=== PATIENT | female | born 1970 | race Caucasian/White ===

== ENCOUNTER → 2017-03-29 | Outpatient (CLI) | payer OTHER ==
--- NOTE | 2017-03-29 20:33 | REP ---
CT of the chest without IV contrast: There are no comparison studies. There are no infiltrates. There are no effusions. There is a focal zone of mild pleural thickening at the superior aspect of the right major fissure where it joins the posterior pleura, likely chronic pleural scarring. However, a small pleural mass is not entirely discounted. in the absence of comparison studies to document stability. Follow-up with attention to this area might be considered. There is a 4 mm nodule anteriorly in the medial segment right middle lobe on image 60. This is a category 2 lesion with the probability of malignancy less than 1%. Annual CT is recommended for follow up of this finding. There are no bulla. There is no inspissated mucoid secretion in the central or peripheral bronchi. The lung griffin otherwise clear and unremarkable. There is no mediastinal adenopathy. There is no axillary adenopathy. The study is insensitive for hilar adenopathy in the absence of IV contrast. The unenhanced thoracic aorta is unremarkable. Cardiac size is normal. The visualized upper abdominal contents are unremarkable. Impression: There are no bulla. There are no inspissated mucoid secretions in the bronchi. There are no infiltrates or effusions. There is a 4 millimeter nodule in the right middle lobe as discussed in the body of the report. Follow-up CT in 1 year for reevaluation of this nodule is recommended. There is focal pleural thickening at the superior margin of the right major fissure where it joins the posterior pleura. Pleural adhesion/scarring versus small pleural mass are diagnostic considerations. Consider follow-up CT in 3/6 months to evaluate for progression. There is no adenopathy. There are no masses. Otherwise, negative CT of the chest. [place] on pulmonary function tests is recommended. Pulmonary consultation might be considered. Signed by Steve Perez MD 03/29/2017 08:25 P
== END ==
LOC: M RAD 17:57
PROVIDERS: ATTEND Family Medicine
DX: J44.9 Chronic obstructive pulmonary disease, unspecified (principal)

== ENCOUNTER → 2017-04-30 | Outpatient (CLI) | payer OTHER ==
[~2017-04-30] MED LIST: METHACHOLINE KIT (J7674) INH
== END ==
LOC: M CARPUL 07:49
DX: R91.1 Solitary pulmonary nodule (principal)
CPT/HCPCS: J7674

== ENCOUNTER 2017-09-02 14:29 | Day surgery (SDC) | payer OTHER ==
[2017-09-02 15:03] LABS: HEMATOCRIT 40.6 % (36.0-47.0); HEMOGLOBIN 13.7 g/dl (12.0-15.5); MEAN CORPUSCULAR HEMOGLOBIN 30.2 pg (27.0-33.0); MEAN CORPUSCULAR HGB CONC 33.7 g/dl (32.0-36.5); MEAN CORPUSCULAR VOLUME 89.6 fl (80.0-96.0); PLATELET COUNT, AUTOMATED 322 10^3/uL (150-450); RED BLOOD COUNT 4.53 10^6/uL (4.00-5.40); RED CELL DISTRIBUTION WIDTH 12.8 % (11.5-14.5); WHITE BLOOD COUNT 7.5 10^3/uL (4.0-10.0)
[2017-09-02] MEDS: LR 1,000 ML IV (15:14)
[2017-09-02 15:23] LABS: CONTROL LINE HCG INT CTR LINE PRESENT; HCG, SERUM QUALITATIVE NEGATIVE (NEGATIVE)
[2017-09-02] MEDS: SILVER NITRATE APPLICATOR As Ordered (17:12)
[2017-09-02] MEDS: LIDOCAINE 1% SDV INJ 30 ML VIAL As Ordered (17:12)
[2017-09-02] MEDS ORDERED: PROPOFOL 200 MG/20 ML VIAL As Ordered (17:16)
[2017-09-02] MEDS ORDERED: MIDAZOLAM INJ 2 MG/2 ML VIAL (J2250) As Ordered (17:16)
[2017-09-02] MEDS ORDERED: fentaNYL 100 MCG/2 ML INJECTION (J3010) As Ordered (17:16)
[2017-09-02] MEDS ORDERED: dexameTHASONE 4 MG/ML 1ML VIAL (J1100) As Ordered (18:33)
[2017-09-02] MEDS ORDERED: ONDANSETRON 4MG/2ML VIAL (J2405) As Ordered (18:33)
[2017-09-02] MEDS ORDERED: KETOROLAC 60 MG/2 ML VIAL (J1885) As Ordered ×2 (18:42)
[2017-09-02] MEDS ORDERED: ePHEDrine SULFATE 25 MG/5 ML(5MG/ML) SYRINGE As Ordered (18:44)
[2017-09-02] MEDS ORDERED: LR 1,000 ML IV ×2 (19:30)
[2017-09-02] MEDS ORDERED: ONDANSETRON 4MG/2ML VIAL (J2405) IV (19:30)
[2017-09-02] MEDS ORDERED: PERCOCET 5MG/325MG TAB PO (19:30)
== END 2017-09-02 20:30 | disposition home or self-care (01) ==
LOC: M SDC 14:29
DX: N84.1 Polyp of cervix uteri (principal); N85.8 Other specified noninflammatory disorders of uterus; J98.9 Respiratory disorder, unspecified; R06.83 Snoring; T88.59XD Other complications of anesthesia, subsequent encounter; Z91.018 Allergy to other foods; Z79.899 Other long term (current) drug therapy
CPT/HCPCS: 58558

== ENCOUNTER → 2017-10-23 | Outpatient (CLI) | payer OTHER | LOC: M RAD 15:56 | DX: Z48.816 Encounter for surgical aftercare following surgery on the genitourinary system (principal) | CPT/HCPCS: 76856 ==

== ENCOUNTER → 2018-08-01 | Outpatient (CLI) | payer OTHER ==
[~2018-08-01] MED LIST changes: +CLAR10CA3 PO; -METHACHOLINE KIT (J7674) INH; +PROHANCE 279.3MG/ML 15ML VIAL (A9576) As Ordered ONE
--- NOTE | 2018-08-01 11:35 | REP ---
MR BRAIN WITHOUT AND WITH CONTRAST: HISTORY: Right sided headache. CONTRAST: ProHance 13 mL. Several punctate areas of increased signal intensity on T2-weighted images are present in the periventricular and subcortical white matter. An additional focus of increased signal intensity is present in the splenium of the corpus callosum. There are no areas of abnormal signal intensity in the brain stem or cerebellum. There is no intraparenchymal hemorrhage, infarct, mass, or midline shift. There is no abnormal enhancement. The ventricular system is normal in appearance. There is no extracerebral collection. The sinuses are clear. IMPRESSION: There are several punctate areas of increased signal intensity in the periventricular and subcortical white matter and corpus callosum. This is suspicious for demyelinating disease. Electronically Signed by Braden Leyva MD 08/01/2018 11:38 A
== END ==
LOC: M RAD 08:36
PROVIDERS: ATTEND Physician Assistant
DX: R94.02 Abnormal brain scan (principal)
CPT/HCPCS: 70553; A9576

== ENCOUNTER → 2018-10-23 | Outpatient (CLI) | payer OTHER ==
[~2018-10-23] MED LIST changes: -PROHANCE 279.3MG/ML 15ML VIAL (A9576) As Ordered ONE
--- NOTE | 2018-10-23 23:55 | REP ---
Clinical: Thyroid nodule. Technique: Real time messer scale and color evaluation using linear high frequency transducer. Findings: Thyroid gland is normal in contour and parenchymal echo texture. Right lobe measures 5.9 x 2.0 x 2.1 cm and includes 1.9 x 1.5 x 1.4 cm complex mid pole cyst with rim calcifications and small cystic components as well as 3 x 2 x 3 mm complex solid mid/lower pole nodule and 3 x 2 x 2 mm complex lower pole cyst. Left lobe measures 5.2 x 1.4 x 1.5 cm and includes 2 x 1 x 2 mm hypoechoic solid upper pole nodule, 3 x 1 x 2 mm complex cyst with echogenic focus in the mid pole, and 7 x 5 x 5 mm isoechoic solid nodule in the lower pole. Impression: 1.9 cm complex solid nodule in the right lobe mid pole region with calcification. Smaller bilateral complex nodules/cysts. Electronically Signed by Samy Grijalva MD 10/23/2018 11:47 P
== END ==
LOC: M RAD 17:19
PROVIDERS: ATTEND Psychiatry & Neurology Neurology
DX: E04.1 Nontoxic single thyroid nodule (principal)

== ENCOUNTER → 2019-01-19 | Outpatient (REF) | payer OTHER | LOC: M LAB REF 15:39 | PROVIDERS: ATTEND Internal Medicine Endocrinology, Diabetes & Metabolism | DX: E04.1 Nontoxic single thyroid nodule (principal) ==